=== PATIENT | female | born 1950 | race Caucasian/White ===

== ENCOUNTER → 2017-08-12 | Day surgery (SDC) | payer MEDICARE, BC ==
[~2017-08-12] MED LIST: ALPR0.25 PO; BONI150T PO; DICL1CAP3 PO; GEMF600 PO; LIDOCAINE HCL 1% 30 ML VIAL NERV BLOCK ONE; LOSA25TA PO; LOSA50TA2 PO; MECL12.574 PO; MEPERIDINE HCL 25 MG/ML VIAL IV ONE; METO25TA3 PO; METO50TA PO; MULTTAB67 PO; PROPOFOL 200 MG/20 ML AMP IV ONE; SODIUM CHLORIDE 0.9% 10 ML VIAL ONE; SUMA25TA2 PO; TRAM50TA PO; VOLT100T; ZOFR4TAB PO; methylPREDNISolone ACETATE 80 MG/ML VIAL ONE
--- NOTE | 2017-08-12 11:15 | M6 ---
cc: ANNY AYALA M.D. DATE: 08/12/2017 DATE OF : 1950 PROCEDURE Fluoroscopically guided L5-S1 interlaminar epidural steroid injection. History and physical was completed and signed. Consent was signed. Procedure site was marked. Medications were listed and reconciled. Pain score was recorded. Allergies were noted. Time out was taken. Fluoroscopy time was recorded where applicable. Sedation was administered or directed by Dr. Ayala. The patient was given oxygen. The patient was monitored by a registered nurse. Total procedure time was greater than 15 minutes. IV was started, blood pressure cuff, pulse oximeter and EKG were applied. The patient was placed in the prone position on a Woody table sedated with small amounts of propofol titrated to effect. Vital signs were monitored and remained stable throughout the procedure lumbar area was prepped with alcohol and 10% Betadine solution and draped with sterile drapes. Fluoroscopy was used to visualize the L5-S1 interlaminar space. The skin was infiltrated with 1% Xylocaine using a 27 gauge needle then a 3-1/2-inch 18-gauge Melo needle was advanced using fluoroscopic guidance and the [id number] technique into the epidural space at L5-S1 slightly to the left of the midline. There was negative aspiration for blood or any other type of fluid and the patient was given 10 mL of half percent Xylocaine 80 mg of Depo-Medrol 150 units of Wydase following this the patient was taken to the recovery room with stable vital signs neurologically intact. W. MD PAPO Darby/cara /8:50 AM /11:11 AM
== END | disposition home or self-care (01) ==
LOC: PHSDC 07:19
PROVIDERS: ATTEND Pain Medicine Interventional Pain Medicine
DX: M54.5 Low back pain (principal); M79.605 Pain in left leg; I10 Essential (primary) hypertension; K21.9 Gastro-esophageal reflux disease without esophagitis; M81.0 Age-related osteoporosis without current pathological fracture
CPT/HCPCS: 62323; 99152; J1040; J2175